=== PATIENT | female | born 1965 | race African-American/Black ===

== ENCOUNTER 2019-06-24 22:47 | Inpatient (IN) | payer BC, OTHER, SELFPAY ==
[2019-06-25] MEDS ORDERED: Ketorolac Tromethamine 30 MG/ML VIAL ONE ×2 (01:00→11:49)
[2019-06-25] MEDS ORDERED: Ondansetron ODT 4 MG TAB PO PRN (01:14)
[2019-06-25] MEDS ORDERED: Acetaminophen 650 MG Suppository PR PRN (01:14)
[2019-06-25] MEDS ORDERED: Acetaminophen 325 MG TAB PO PRN (01:14)
[2019-06-25] MEDS ORDERED: Ondansetron PF 4 MG/2 ML Vial IVP PRN (01:14)
--- NOTE | 2019-06-25 02:34 | HP ---
PRIMARY CARE DOCTOR: No reported. CODE STATUS: Full code. TIME OF EVALUATION: 01:20 a.m. CHIEF COMPLAINT: Fever and chills. HISTORY OF PRESENT ILLNESS: This is a 54-year-old female patient with past medical history of Crohn disease, status post ileostomy, anemia, kidney stones, chronic kidney disease, came to the hospital after having fever and chills. Symptoms have been present for the past two nights with no clear triggers, no alleviating factors. The symptoms were severe. CAT scan was done which shows some possible kidney stones, but none of them obstructing. REVIEW OF SYSTEMS: All systems were reviewed and negative except for the findings mentioned above. PAST MEDICAL HISTORY: As mentioned in the HPI. PAST SURGICAL HISTORY: Positive for ileostomy, colonoscopy, hernia repair, laryngoscopy, bronchoscopy, esophagoscopy, and endometrial ablation. SOCIAL HISTORY: Never smoker. No use of drugs or alcohol. ALLERGIES: NO KNOWN REPORTED. PHYSICAL EXAMINATION: VITAL SIGNS: On presentation, blood pressure 125/77, temperature 102, heart rate 104, and respiratory rate was 22. GENERAL: The patient has ill appearance. ABDOMEN: Soft. Normal bowel sounds. MUSCULOSKELETAL: Baseline range of motion and strength. SKIN: Warm and intact. No pallor. No rash. No redness. Capillary refill seems to be intact. NEURO: No evidence of any new focal weakness. Cranial nerves seem to be intact. PSYCH: The patient is in good mood. No anxiety. Optimal judgment. CARDIOVASCULAR: The patient is tachycardic. Regular rhythm. No murmurs. No gallop. No edema. RESPIRATORY: Bilateral air entry. No rales. No wheezing. Symmetric expansion. LABORATORY DATA: Labs were reviewed from prior to transfer records. The patient has urine that was positive with white count 10 to 19. Lactic acid 1.1. CBC, the patient has white count 17.3, hemoglobin 10.2, hematocrit 30.9, MCV 69.3, and platelet count 364. The lipase was 6, glucose 130, BUN 8, creatinine 1.13 with sodium 133, potassium 3.2, chloride 101, carbon dioxide 22, calcium 9.6, bilirubin 0.5, and alkaline phosphatase 117. AST 118, ALT 113, total protein 8.4, and albumin 4.2. PT 14.6 and INR 1.1. DIAGNOSTIC STUDIES: 1. CT of abdomen and pelvis with contrast was done. The patient has 1.2 mm proximal left ureteral calculus without significant postobstructive change. 2. Multiple pelvic calcifications near the posterior bladder and right ureterovesical junction which cannot be definitely localized were suspicion for distal right ureteral calculi. No right side urinary obstructive change and this calcifications unchanged since the prior exam. Consider no emergent outpatient CT. IVP for better evaluation. Multiple bilateral intrarenal calculi, right greater than left. Other findings as above. Chest x-ray, no acute process. ASSESSMENT AND PLAN: The patient will be placed in the hospital with following medical problems. 1. Urinary tract infection. The patient has positive urinalysis. We will send cultures. We will continue antibiotics. We will adjust as per sensitivity. 2. Sepsis. The patient has fever and tachycardia, source is urinary tract infection. We will treat as above. We will continue fluids. 3. Multiple kidney stones. They are non-obstructive. No ureteronephrosis. No need for any further intervention at this point. 4. History of Crohn disease. This is chronic, stable. Ileostomy is functioning properly. 5. Deep venous thrombosis prophylaxis. Job ID: [id number]
[2019-06-25] MEDS ORDERED: cefTRIAXone\\ROCEPHIN 1 GM in Sodium Chloride 0.9% 100 ML IVPB SCH (03:00)
[2019-06-25 04:29] LABS: Mean Corpuscular HGB CONC 32.2 g/dL (32.0-36.0); Mean Corpuscular Hemoglobin 23.4 pg (27.0-31.0); Mean Corpuscular Volume 72.9 fL (78.0-98.0); Mean Platelet Volume 8.1 fL (7.4-10.4); Platelet Count 341 thou/uL (130-400); RBC Distribution Width 12.5 % (11.5-14.5); Red Blood Cell (RBC) Count 4.25 mill/uL (4.20-5.40); White Blood Cell (WBC) Count 18.8 thou/uL (4.8-10.8)
[2019-06-25 04:41] LABS: Anion Gap 11 mmol/L (10-20); BUN (Urea Nitrogen) 7 mg/dL (9.8-20.1); Calc. Creatinine Clearance 0 mL/min (70-130); Calcium 8.5 mg/dL (7.8-10.44); Carbon Dioxide 20 mmol/L (22-29); Chloride 112 mmol/L (98-107); Estimated GFR-MDRD 63; Glucose 123 mg/dL (70-105); Potassium 4.4 mmol/L (3.5-5.1); Sodium 139 mmol/L (136-145)
[2019-06-25] MEDS: Sodium Chloride 0.9% 1,000 ML IV SCH ×3 (05:48→18:21)
[2019-06-25] MEDS: Enoxaparin Sodium 40 MG/0.4 ML SYRINGE SC SCH (09:09)
[2019-06-25] MEDS ORDERED: Sodium Chloride 0.9% 1,000 ML IV SCH (09:30)
[2019-06-25] MEDS ORDERED: Non-Formulary Item 1 EACH (Adalimumab [Humira Pen] 40 MG) SUBCONJUNT SCH (10:45)
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
[2019-06-25] MEDS ORDERED: HUMIRA 40 MG FS SCH (11:00)
[2019-06-25] MEDS ORDERED: Ketorolac Tromethamine 30 MG/ML VIAL IVP SCH (11:00)
[2019-06-25] MEDS ORDERED: ePHEDrine 50 MG/ML VIAL ONE (11:49)
[2019-06-25] MEDS ORDERED: PROPOFOL 200 MG/20 ML VIAL ONE (11:49)
[2019-06-25] MEDS ORDERED: Ondansetron PF 4 MG/2 ML Vial ONE (11:49)
[2019-06-25] MEDS ORDERED: PHENYLEPHRINE-NS 100 MCG/ML 10 ML SYRINGE ONE (11:49)
[2019-06-25] MEDS ORDERED: Succinylcholine Chloride 20 MG/ML 10 ml SYRINGE FS ONE (11:49)
[2019-06-25] MEDS ORDERED: Dexamethasone 20 MG/5 ML VIAL ONE (11:49)
[2019-06-25] MEDS ORDERED: Lidocaine 1% PF 5 ML VIAL ONE (11:49)
[2019-06-25] MEDS: Ketorolac Tromethamine 30 MG/ML VIAL IVP SCH ×2 (12:00→18:42)
[2019-06-25] MEDS: Vancomycin HCl 1 GM in Premix Bag 1 BAG IVPB SCH (12:00)
[2019-06-25] MEDS ORDERED: Iothalamate Meglumine 60% 50 ML VIAL FS ONE (17:39)
[2019-06-25] MEDS ORDERED: Fentanyl 100 MCG/2 ML VIAL ONE (17:45)
[2019-06-25] MEDS ORDERED: PACU-Morphine 4MG/ML VIAL SLOW IVP PRN (18:10)
[2019-06-25] MEDS ORDERED: Ondansetron HCl/PF 4 MG/2 ML Vial IVP PRN (18:10)
[2019-06-25] MEDS ORDERED: HYDROmorphone 2 MG/ML VIAL SLOW IVP PRN (18:10)
[2019-06-25] MEDS ORDERED: Promethazine HCl 25 MG/ML VIAL IM PRN (18:10)
[2019-06-25] MEDS ORDERED: Promethazine HCl 25 MG/ML VIAL SLOW IVP PRN (18:10)
--- NOTE | 2019-06-25 19:19 | CON ---
DATE OF CONSULTATION: 06/25/2019 CHIEF COMPLAINT: Fever, chills, dysuria. HISTORY: Ms Dunbar is a 54-year-old female who I have seen in the past for stone disease. She presents now with fevers. She states this began on 06/23/2019. She was not feeling quite well on that day and then on 06/24/2019 she felt worst and presented to her doctor who gave her antibiotic therapy. Urinalysis at that time demonstrated moderate bacteria. She was given Keflex, but her symptoms worsened , so she then presented to [facility] emergency [facility] where she was found to have nausea and a temperature of 102 degrees. She was transferred from [facility] to [facility]. She has back pain on both sides. CT scan demonstrates a tiny left ureteral calculus in the left mid upper ureter. There were also multiple calcifications on the right side in the pelvis. These are stable compared to prior scan approximately a year ago. PAST MEDICAL HISTORY: Crohn disease, anemia, kidney stones. PAST SURGICAL HISTORY: Ureteroscopy for stone extraction, endometrial ablation, ileostomy and colectomy for Crohn disease, hernia repair, umbilical. FAMILY HISTORY: Significant for diabetes. ALLERGIES: HYDROCODONE CAUSES HALLUCINATIONS. 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 She is nonsmoker. Denies excessive alcohol use. She is not . REVIEW OF SYSTEMS: RESPIRATORY: No shortness of breath. CARDIOVASCULAR: Denies chest pain or palpitations. GASTROINTESTINAL: She has had nausea for the last 24 hours. She has history of Crohn disease. GENITOURINARY: Please see history of present illness. PHYSICAL EXAMINATION: GENERAL: She is awake and alert. She is in no distress at this time. VITAL SIGNS: Pulse 100.2, blood pressure 138/82, temperature 99 (T-max 103). HEENT: Normocephalic, atraumatic. NECK: Supple. No masses. CHEST: Clear to auscultation. CARDIOVASCULAR: Regular rhythm. ABDOMEN: Soft, nontender. No palpable masses. She has an ostomy that appears healthy. No peritoneal signs. LABORATORY DATA: Lactic acid from 06/24/2019 is 1.1. Creatinine 1.13. White count 17.3. Urinalysis on 06/24/2019 moderate bacteria. Follow up urinalysis after Keflex later on 06/24/2019, occasional bacteria. IMPRESSION: Ms. Dunbar has signs and symptoms consistent with urinary tract infection. She has a tiny stone in the left upper ureter without any left-sided flank pain. Because of her infection; however, I recommended stenting. She also has calcifications in the right pelvis in the region of the right ureter. These are stable from the scan done over 6 months ago and are highly unlikely to be in the urinary tract. There is no right-sided hydronephrosis. RECOMMENDATIONS: Cystoscopy, left double-J stent placement, right retrograde pyelography. Continue antibiotic therapy. I will contact [facility] lab to ensure they are culturing the initial urine sample (prior to antibiotic therapy). Job ID: [id number] MTDD
[2019-06-25 22:25] VITALS: BMI 19.5
[2019-06-26] MEDS: Ketorolac Tromethamine 30 MG/ML VIAL IVP SCH ×4 (00:16→18:12)
[2019-06-26] MEDS: Vancomycin HCl 1 GM in Premix Bag 1 BAG IVPB SCH ×2 (00:20→12:53)
--- NOTE | 2019-06-26 01:28 | OP ---
DATE OF PROCEDURE: 06/25/2019 PREOPERATIVE DIAGNOSIS: Urinary tract infection, left ureteral stone. POSTOPERATIVE DIAGNOSIS: Urinary tract infection, left ureteral stone. PROCEDURE: Cystoscopy, left double-J stent placement, right retrograde pyelogram. ANESTHESIA: General. INDICATIONS: Ms. Dunbar is a 54-year-old female who presented with fever, chills, and urine consistent with urinary tract infection. Imaging revealed a left upper ureteral stone quite small, approximately 2 mm with no obvious obstruction. She continues to spike fevers despite antibiotic therapy and was brought to the operating room for left ureteral stent placement. Additionally, on her CT scan , she was noted to have multiple calcifications in the region of the right distal ureter. Retrograde pyelography was planned to rule out if these are truly not within the urinary tract. DESCRIPTION OF PROCEDURE: The patient was given general anesthesia. She is on IV antibiotics. She is sterilely prepped and draped in lithotomy position. A cystoscope was passed into the bladder. Bladder was examined in its entirety. There were no mucosal abnormalities. Left ureteral orifice was intubated with a floppy tip guidewire which was passed cephalad under fluoroscopic control. A 6 x 26 double-J stent was passed over the guidewire and coiled in the left renal pelvis and in the bladder as determined fluoroscopically and cystoscopically. Following this, a Pollack open-ended ureteral catheter was placed in the right ureteral orifice. Retrograde pyelography was performed. The right ureter was normal in course and caliber and drained readily. There were no calcifications within the right ureter. The cystoscope was used to drain the bladder. A Soriano catheter was placed. The patient was awakened in the operating room and transported to recovery room in stable condition. COMPLICATION: None. ESTIMATED BLOOD LOSS: Minimal. IMPRESSION: 1. Upper ureteral stone, left side, now status post stenting. 2. No right ureteral calcifications or any right obstruction. Job ID: [id number] MTDD
[2019-06-26] MEDS: Sodium Chloride 0.9% 1,000 ML IV SCH ×3 (01:53→18:12)
[2019-06-26] MEDS: cefTRIAXone\\ROCEPHIN 2 GM in Sodium Chloride 0.9% 100 ML IVPB SCH (03:45)
[2019-06-26 05:26] LABS: Anion Gap 14 mmol/L (10-20); BUN (Urea Nitrogen) 11 mg/dL (9.8-20.1); Calc. Creatinine Clearance 63 mL/min (70-130); Calcium 7.7 mg/dL (7.8-10.44); Carbon Dioxide 16 mmol/L (22-29); Chloride 111 mmol/L (98-107); Estimated GFR-MDRD 79; Glucose 133 mg/dL (70-105); Potassium 4.3 mmol/L (3.5-5.1); Sodium 137 mmol/L (136-145)
[2019-06-26 05:32] LABS: Band 22 % (5-11); Hemoglobin 8.7 g/dL (12.0-16.0); Lymphocytes 5 % (21-51); MDiff Complete? YES; Mean Corpuscular HGB CONC 32.9 g/dL (32.0-36.0); Mean Corpuscular Hemoglobin 24.1 pg (27.0-31.0); Mean Corpuscular Volume 73.2 fL (78.0-98.0); Mean Platelet Volume 8.2 fL (7.4-10.4); Neutrophil 73 % (42-75); Platelet Count 307 thou/uL (130-400); RBC Distribution Width 12.8 % (11.5-14.5); Red Blood Cell (RBC) Count 3.62 mill/uL (4.20-5.40); White Blood Cell (WBC) Count 17.8 thou/uL (4.8-10.8)
[2019-06-26] MEDS: Enoxaparin Sodium 40 MG/0.4 ML SYRINGE SC SCH (12:25)
--- NOTE | 2019-06-26 13:42 | PDOC.HOSPP ---
- Subjective Encounter Date: 06/26/19 Encounter Time: 13:40 Subjective: f/u for L ureteral stone with UTI/sepsis s/p ureteral stent POD #1. Receiving Rocephin/Vanc currently. Feels better overall. - Objective Vital Signs & Weight: Vital Signs (12 hours) Temp Pulse Resp BP Pulse Ox 06/26/19 07:26 97.5 F L 63 16 107/56 L 100 06/26/19 03:10 96.3 F L 63 12 96/52 L 97 Weight Admit Weight 123 lb 1.6 oz Weight 124 lb 12.8 oz I&O: 06/25/19 06/26/19 06/27/19 06:59 06:59 06:59 Intake Total 3720 Output Total 2350 Balance 1370 Result Diagrams: 06/26/19 04:52 06/26/19 04:52 Additional Labs: Laboratory Tests 06/25/19 06/26/19 04:03 04:52 WBC 18.8 H Hgb 10.0 L Neutrophils % (Manual) 73 Band Neuts % (Manual) 22 H EKG Reviewed by me: Yes (Tele - SR) Hospitalist ROS - Medication Medications: Active Medications Generic Name Dose Route Start Last Admin Trade Name Freq PRN Reason Stop Dose Admin Acetaminophen 650 mg 06/25/19 01:14 06/25/19 06:32 Tylenol PO 650 mg Q4H PRN Administration Headache/Fever/Mild Pain (1-3) Enoxaparin Sodium 40 mg 06/25/19 09:00 06/26/19 12:25 Lovenox SC Not Given 0900 [facility] Sodium Chloride 1,000 mls @ 125 mls/hr 06/25/19 01:15 06/26/19 05:57 Normal Saline 0.9% IV 1,000 mls .Q8H CARI Administration Ceftriaxone Sodium 2 gm/ 100 mls @ 200 mls/hr 06/26/19 03:00 06/26/19 03:45 Sodium Chloride IVPB 100 mls 0300 CARI Administration Vancomycin HCl 1 gm/ Device 200 mls @ 200 mls/hr 06/25/19 12:00 06/26/19 12: 53 IVPB 200 mls 1200,2359 CARI Administration Ketorolac Tromethamine 30 mg 06/25/19 11:00 06/25/19 12:00 Toradol IVP 06/30/19 11:01 30 mg ONE CARI Administration Ketorolac Tromethamine 30 mg 06/25/19 12:00 06/26/19 12:52 Toradol IVP 06/30/19 12:01 30 mg Q6HR CARI Administration [Humira Pen] 40 Mg 0 each 06/25/19 11:00 06/25/19 21:20 FS 1 each .SEE ORDER CARI Administration Sodium Chloride 10 ml 06/25/19 21:00 06/26/19 08:45 Flush - Normal Saline IVF Not Given Q12HR CARI - Exam General Appearance: NAD, awake alert Eye: PERRL, anicteric sclera ENT: normocephalic atraumatic, no oropharyngeal lesions Neck: supple, symmetric, no JVD, no thyromegaly, no lymphadenopathy Heart: RRR, no murmur, no gallops, no rubs, normal peripheral pulses Respiratory: CTAB, no wheezes, no rales, no ronchi, normal chest expansion Gastrointestinal: soft, non-tender, non-distended, normal bowel sounds Gastrointestinal - other findings: Soriano with gross hematuria Extremities: no cyanosis, no clubbing, no edema Skin: normal turgor, no lesions Neurological: CN's grossly intact, no focal deficits, no new deficit Musculoskeletal: normal tone, normal strength, no muscle wasting Psychiatric: normal affect, normal behavior, A&O x 3 Hosp A/P (1) Sepsis due to urinary tract infection Code(s): A41.9 - SEPSIS, UNSPECIFIED ORGANISM; N39.0 - URINARY TRACT INFECTION, SITE NOT SPECIFIED Status: Acute Plan: Ucx pending for identificaiton of orgnanism, continue Rocephin/Vancomycin, IVF's (2) Ureteral calculus Code(s): N20.1 - CALCULUS OF URETER Status: Acute Plan: s/p L ureteral stent placement POD #1, appreciate Urology (3) Hypotension Status: Acute Plan: Resolved, continue IVF's (4) Microcytic anemia Code(s): D50.9 - IRON DEFICIENCY ANEMIA, UNSPECIFIED Status: Chronic Plan: Likely iron-deficiency, serial H/H monitoring, check Iron studies, stool guaiac - Plan continue antibiotics, out of bed/ambulate Continue aggressive support Continue IVF's Add Vancomycin 1gm IV q12h Continue Rocephin pending final Ucx/Blood cx Urology assistance appreciated AM lab: BMP, CBC, iron studies
[2019-06-27] MEDS: Vancomycin HCl 1 GM in Premix Bag 1 BAG IVPB SCH ×2 (00:20→12:34)
[2019-06-27] MEDS: Ketorolac Tromethamine 30 MG/ML VIAL IVP SCH ×5 (00:20→23:28)
[2019-06-27] MEDS: Sodium Chloride 0.9% 1,000 ML IV SCH ×2 (03:01→11:16)
[2019-06-27] MEDS: cefTRIAXone\\ROCEPHIN 2 GM in Sodium Chloride 0.9% 100 ML IVPB SCH (03:25)
[2019-06-27 05:39] LABS: Reticulocyte Count 0.8 % (0.5-1.5)
[2019-06-27 05:48] LABS: Band 3 % (5-11); Eosinophils 1 % (0-10); Hemoglobin 8.3 g/dL (12.0-16.0); Hypochromia SLIGHT = 6-15 cells (100X) (0-5/hpf); Lymphocytes 2 % (21-51); MDiff Complete? YES; Mean Corpuscular HGB CONC 31.5 g/dL (32.0-36.0); Mean Corpuscular Hemoglobin 22.7 pg (27.0-31.0); Mean Corpuscular Volume 72.1 fL (78.0-98.0); Mean Platelet Volume 8.5 fL (7.4-10.4); Microcytosis SLIGHT = 6-15 cells (100X) (0-5/hpf); Monocytes 2 % (0-10); Neutrophil 92 % (42-75); Platelet Count 354 thou/uL (130-400); Platelet Morphology Comment Appears Adequate; RBC Distribution Width 12.9 % (11.5-14.5); Red Blood Cell (RBC) Count 3.66 mill/uL (4.20-5.40); Target Cells SLIGHT = 2-5 cells (100X) (0-1/hpf); White Blood Cell (WBC) Count 19.1 thou/uL (4.8-10.8)
[2019-06-27 06:02] LABS: Anion Gap 10 mmol/L (10-20); BUN (Urea Nitrogen) 16 mg/dL (9.8-20.1); Calc. Creatinine Clearance 68 mL/min (70-130); Calcium 7.7 mg/dL (7.8-10.44); Carbon Dioxide 18 mmol/L (22-29); Chloride 113 mmol/L (98-107); Estimated GFR-MDRD 86; Glucose 98 mg/dL (70-105); Iron 55 ug/dL (50-170); Iron Binding Capacity, Total 143 mcg/dL (265-497); Potassium 3.8 mmol/L (3.5-5.1); Sodium 137 mmol/L (136-145)
[2019-06-27] MEDS ORDERED: VANC/ABX IVPB PRN (10:53)
[2019-06-27 11:58] LABS: Vancomycin, Trough 20.5 ug/mL
[2019-06-27] MEDS: Vancomycin HCl 750 MG in Sodium Chloride 0.9% 250 ML 250 ML IVPB SCH ×2 (12:39→23:28)
[2019-06-27] MEDS: 1/2 NS w/KCL 20 mEq 1,000 ML IV SCH (20:42)
--- NOTE | 2019-06-27 23:14 | PDOC.HOSPP ---
- Subjective Encounter Date: 06/27/19 Encounter Time: 16:30 Subjective: Patient seen and examined for Sepsis. No fever. Pain controlled. Mild nausea. No new complaints. No overnight events - Objective Vital Signs & Weight: Vital Signs (12 hours) Temp Pulse Resp BP Pulse Ox 06/27/19 20:00 98.4 F 82 18 110/63 97 06/27/19 15:20 98.8 F 89 18 119/63 98 Weight Admit Weight 123 lb 1.6 oz Weight 124 lb 12.8 oz I&O: 06/26/19 06/27/19 06/28/19 06:59 06:59 06:59 Intake Total 3720 3650 2300 Output Total 2350 1650 1800 Balance 1370 2000 500 Result Diagrams: 06/28/19 06:57 06/28/19 06:58 EKG Reviewed by me: Yes (Tele SR) Hospitalist ROS - Review of Systems Respiratory: denies: cough, dry, shortness of breath, hemoptysis, SOB with excertion, pleuritic pain, sputum, wheezing, other Cardiovascular: denies: chest pain, palpitations, orthopnea, paroxysmal noc. dyspnea, edema, light headedness, other Gastrointestinal: denies: nausea, vomitting, abdominal pain, diarrhea, constipation, melena, hematochezia, other - Medication Medications: Active Medications Generic Name Dose Route Start Last Admin Trade Name Freq PRN Reason Stop Dose Admin Acetaminophen 650 mg 06/25/19 01:14 06/25/19 06:32 Tylenol PO 650 mg Q4H PRN Administration Headache/Fever/Mild Pain (1-3) Ceftriaxone Sodium 2 gm/ 100 mls @ 200 mls/hr 06/26/19 03:00 06/27/19 03:25 Sodium Chloride IVPB 100 mls 0300 CARI Administration Vancomycin HCl 750 mg/ Sodium 250 mls @ 250 mls/hr 06/27/19 12:00 06/27/19 12 :39 Chloride IVPB 250 mls 1200,2359 CARI Administration Potassium Chloride/Sodium Chloride 1,000 mls @ 125 mls/hr 06/27/19 17:30 04/09 20:42 1/2 Ns W/Kcl 20 Meq IV 1,000 mls .Q8H CARI Administration Ketorolac Tromethamine 30 mg 06/25/19 11:00 06/25/19 12:00 Toradol IVP 06/30/19 11:01 30 mg ONE CARI Administration Ketorolac Tromethamine 30 mg 06/25/19 12:00 06/27/19 18:03 Toradol IVP 06/30/19 12:01 30 mg Q6HR CARI Administration [Humira Pen] 40 Mg 0 each 06/25/19 11:00 06/25/19 21:20 FS 1 each .SEE ORDER CARI Administration Sodium Chloride 10 ml 06/25/19 21:00 06/27/19 20:42 Flush - Normal Saline IVF 10 ml Q12HR CARI Administration - Exam General Appearance: NAD Neck: supple, no JVD Heart: RRR, no rubs Respiratory: CTAB, no wheezes, no ronchi Gastrointestinal: soft, non-tender, non-distended, normal bowel sounds Extremities: no edema Hosp A/P (1) Sepsis due to urinary tract infection Code(s): A41.9 - SEPSIS, UNSPECIFIED ORGANISM; N39.0 - URINARY TRACT INFECTION, SITE NOT SPECIFIED Status: Acute (2) Ureteral calculus Code(s): N20.1 - CALCULUS OF URETER Status: Acute (3) Microcytic anemia Code(s): D50.9 - IRON DEFICIENCY ANEMIA, UNSPECIFIED Status: Chronic (4) Hypotension Status: Acute - Plan DVT proph w/SCDs Cont IV Ceftriaxone Cont other meds as above Await cultures from [facility] AM labs Transfer to Medical
[2019-06-28] MEDS: cefTRIAXone\\ROCEPHIN 2 GM in Sodium Chloride 0.9% 100 ML IVPB SCH (02:48)
[2019-06-28] MEDS: 1/2 NS w/KCL 20 mEq 1,000 ML IV SCH ×2 (03:14→08:31)
[2019-06-28] MEDS: Ketorolac Tromethamine 30 MG/ML VIAL IVP SCH ×2 (06:01→11:51)
[2019-06-28 07:31] VITALS: BP 126/76; TEMP 98.3
[2019-06-28 07:39] LABS: Hemoglobin 8.6 g/dL (12.0-16.0); Mean Corpuscular HGB CONC 32.5 g/dL (32.0-36.0); Mean Corpuscular Hemoglobin 23.1 pg (27.0-31.0); Mean Corpuscular Volume 71.1 fL (78.0-98.0); Mean Platelet Volume 8.1 fL (7.4-10.4); Platelet Count 401 thou/uL (130-400); RBC Distribution Width 12.9 % (11.5-14.5); Red Blood Cell (RBC) Count 3.71 mill/uL (4.20-5.40); White Blood Cell (WBC) Count 13.2 thou/uL (4.8-10.8)
[2019-06-28 07:45] LABS: Albumin 2.7 g/dL (3.5-5.0); Anion Gap 11 mmol/L (10-20); BUN (Urea Nitrogen) 6 mg/dL (9.8-20.1); BUN/Creatinine Ratio 7.79; Calc. Creatinine Clearance 73 mL/min (70-130); Calcium 7.7 mg/dL (7.8-10.44); Carbon Dioxide 18 mmol/L (22-29); Chloride 112 mmol/L (98-107); Estimated GFR-MDRD Greater than 90; Glucose 84 mg/dL (70-105); Magnesium 1.9 mg/dL (1.6-2.6); Phosphorus 2.4 mg/dL (2.3-4.7); Potassium 3.5 mmol/L (3.5-5.1); Sodium 137 mmol/L (136-145)
[2019-06-28 09:10] LABS: Band 1 % (5-11); Eosinophils 2 % (0-10); Hypochromia SLIGHT = 6-15 cells (100X) (0-5/hpf); Lymphocytes 13 % (21-51); MDiff Complete? YES; Metamyelocyte 1 % (0-0); Monocytes 9 % (0-10); Myelocyte 1 % (0-0); Neutrophil 72 % (42-75); Platelet Morphology Comment Appears Increased; Polychromasia SLIGHT = 2-3 cells (100X) (0-2/hpf); Reactive Lymphocytes 1 % (0-10)
[2019-06-28] MEDS: Vancomycin HCl 750 MG in Sodium Chloride 0.9% 250 ML 250 ML IVPB SCH (11:51)
--- NOTE | 2019-06-29 10:26 | DIS ---
DATE OF ADMISSION: 06/25/2019 DATE OF DISCHARGE: 06/28/2019 DISCHARGE DISPOSITION: Home. FOLLOWUP: 1. Follow up with primary care physician, Dr. Garcia in one week. 2. Follow up with Dr. Mirza in 1 week. ALLERGIES: THE PATIENT IS ALLERGIC TO CODEINE AND HYDROCODONE. DISCHARGE MEDICATION: 1. Omnicef 300 mg b.i.d. for next 10 days. 2. Florastor 250 mg daily. All other home medications were left unchanged. BRIEF HOSPITAL COURSE: The patient is a 54-year-old female, who presented to the emergency room on June 25, 2019, with fever and chills. She initially presented to [facility] and was transferred to this facility. Workup was consistent with obstructive UTI. She was seen by Urology Dr. Mirza and underwent cystoscopy with stent placement. Urine culture obtained from [facility] showed mixed organism. Susceptibilities are still pending. She was advised to follow up with Dr. Mirza's office for the culture report on Sunday. She has been afebrile and appears stable for discharge. Her WBC count improved to 13.2 from 19.1 on the day of discharge. FINAL DIAGNOSES: 1. Sepsis secondary to obstructive urinary tract infection. 2. Left ureteral calculus. 3. Moderate protein calorie malnutrition. 4. Microcytic anemia. 5. Hypotension secondary to sepsis, improved with IV hydration. 6. History of Crohn disease, status post ileostomy. PLAN: Plan of care was discussed with the patient in detail. She stated understanding. Job ID: [id number]
== END 2019-06-28 14:26 | disposition home or self-care (01) | DRG 854 ==
LOC: ERS 22:47 → 2NO 06-25 01:18 → T4-B 06-27 21:30 → T4-A 06-27 21:54
PROVIDERS: ADMIT Hospitalist; ATTEND Hospitalist
PROC: 0T768DZ Dilation of Right Ureter with Intraluminal Device, Via Natural or Artificial Opening Endoscopic (ICD-10-PCS; principal; 2019-06-25)
PROC: BT1D1ZZ Fluoroscopy of Right Kidney, Ureter and Bladder using Low Osmolar Contrast (ICD-10-PCS; 2019-06-25)
DX: A41.9 Sepsis, unspecified organism (principal); N39.0 Urinary tract infection, site not specified; N20.1 Calculus of ureter; E44.0 Moderate protein-calorie malnutrition; Z68.1 Body mass index [BMI] 19.9 or less, adult; N18.9 Chronic kidney disease, unspecified; D50.9 Iron deficiency anemia, unspecified; Z98.890 Other specified postprocedural states; Z88.8 Allergy status to other drugs, medicaments and biological substances; Z93.2 Ileostomy status
CPT/HCPCS: 36415; 76000; 80048; 80069; 80202; 82274; 82728; 83540; 83550; 83735; 85007; 85025; 85027; 85046; 96361; 96374; C1758; C1769; J0696; J1100; J1650; J1885; J2001; J2405; J2704; J3010; J3370; J3480; J3490; J7050